=== PATIENT | female | born 1970 | race Caucasian/White ===

== ENCOUNTER 2022-04-18 09:38 | Inpatient (IN) | payer OTHER, SELFPAY ==
[2022-04-18] VITALS (13 sets, daily range): BP systolic 152–190; BP diastolic 79–105; PULSE 68–94; RESP 12–24; TEMP 36.3–36.4; O2SAT 98–100; BMI 27.6
--- NOTE | ~2022-04-18 | XR_ITS ---
EXAMINATION: XR chest 2V DATE: 04/18/2022 10:51 INDICATION: Shortness of breath and cough. TECHNIQUE: Frontal and lateral views of the chest were obtained. COMPARISON: None. FINDINGS: There are small pleural effusions. Kemar B-lines are noted, consistent mild pulmonary neot a. No pneumothorax. The heart size is normal. IMPRESSION: 1. Mild pulmonary edema. 2. Small pleural effusions. Reviewed, dictated and finalized at location A.
--- NOTE | ~2022-04-18 | CT_ITS ---
EXAMINATION: CTA chest PE protocol DATE: 04/18/2022 12:03 INDICATION: Shortness of breath and cough. TECHNIQUE: Computed tomography angiography (CTA) of the chest was performed with 100 mL Omnipaque-350 intravenous contrast timed to evaluate the pulmonary arteries. Coronal maximum intensity projection 3D-reconstructions were created by the technologist. Automated exposure control and iterative reconst ruction technique were employed. The dose-length product was 383.56 mGy-cm. COMPARISON: Chest 2 views 04/18/22 FINDINGS: The lungs demonstrate smooth septal thickening, consistent with mild pulmonary edema. There are airspace and groundglass opacities in left lower lobe. There is dependent atelectasis bilaterall y. There are small pleural effusions. The heart size is normal. No pericardial effusion. There is no pulmonary embolus. There is a 4.8 cm cyst in the liver. There is mild thoracic spondylosis. IMPRESSION: 1. No pulmonary embolus. 2. Mild pulmonary edema. 3. Airspace and groundglass opacities in left lower lobe, consistent with atelectasis versus pneumoni a. 4. Small pleural effusions. Reviewed, dictated and finalized at location A. IMPRESSION: 1. No pulmonary embolus. 2. Mild pulmonary edema. 3. Airspace and groundglass opacities in left lower lobe, consistent with atele ctasis versus pneumonia. 4. Small pleural effusions.
--- NOTE | ~2022-04-18 | XR_ITS ---
XR chest 2V DATE: 04/19/2022 08:41 INDICATION: Dyspnea. Pulmonary vascular congestion. TECHNIQUE: PA and lateral views COMPARISON: 04/2022 CTA chest 04/2022 PA and lateral chest FINDINGS: Normal heart size. Diminished pulmonary vascular and pulmonary interstitial prominence and diminished prominence of the minor fissure since 04/2022. Small bilateral pleural effusions. Minimal infiltrate and/or atelectasis in the lower lung zones, improved since . IMPRESSION: Improving congestive changes and infiltrates or atelectasis since 04/18/22 Reviewed, dictated and finalized at location A. IMPRESSION: Improving congestive changes and infiltrates or atelectasis since 06/18/21
--- NOTE | 2022-04-18 09:46 | ECG_ITS ---
Measurements Intervals [place] Rate: 84 P: 40 DE: 134 QRS: 21 QRSD: 84 T: 34 QT: 401 QTc: 476 Interpretive Statements SINUS RHYTHM NORMAL ECG NO PREVIOUS ECG AVAILABLE FOR COMPARISON Electronically Signed On 04-18-2022 10:18:31 CDT by Jordan Saab D.O.
[2022-04-18 10:30] LABS: Basophils Percent Auto 0.4 % (0.2-1.2); Eosinophils Absolute Auto 0.2 K/mm3 (0-0.3); Eosinophils Percent Auto 1.9 % (0-4.4); Hematocrit 33.1 % (37.0-47.0); Hemoglobin 9.7 g/dL (12.0-15.0); Immature Granulocyte Absolute 0.04 K/mm3 (0.00-0.031); Immature Granulocyte Percent A 0.5 % (0-0.5); Lymphocytes Absolute Auto 1.05 K/mm3 (0.9-3.2); Lymphocytes Percent Auto 13.5 % (18.3-44.2); Mean Corpuscular HGB Conc 29.3 g/dl (32-36); Mean Corpuscular Hemoglobin 26.3 pg (26-34); Mean Corpuscular Volume 89.7 fl (80-100); Mean Platelet Volume 8.8 fl (7.4-10.4); Monocytes Absolute Auto 0.5 K/mm3 (0.1-0.6); Monocytes Percent Auto 6.7 % (2.6-8.5); Platelet Count Result 189 k/mm3 (150-375); Red Blood Count 3.69 M/mm3 (4.2-5.4); Red Cell Distribution Width 14.6 % (11.5-14.5); White Blood Count 7.8 K/mm3 (4.5-10.0)
[2022-04-18] MEDS: ALBUTEROL SULFATE NEB 2.5 MG/3 ML INH INHALATION (10:35)
--- NOTE | 2022-04-18 10:43 | ED.GENADULT ---
HPI - General Adult General Chief complaint: Shortness of Breath/Dyspnea Stated complaint: SOB Time Seen by Provider: 04/18/22 10:16 History of Present Illness HPI narrative: Pt is a 51 y/o female, PMhx of HTN and tobacco dependency, presents to ED via EMS with C/O SOB for the past week, onset of symptoms Thursday with nasal congestion, one episode of vomiting and cough. Her cough is non productive and her nasal congestion has improved however, she has continued to feel as if she cannot take in a deep breath and she has felt achy with sore throat and sensation of posterior rhinorrhea. She does mention known close contacts to family members with similar symptoms. They were tested for flu and COV, all negative. She too, tested for COV on Thursday with a negative test. She has taken OTC DayQuil at home and has used an albuterol inhaler given to her by her brother without much relief. She also mentions running out of lisinopril/HCTZ one month ago after she changed insurances and is required to change PCPs. She has no hx of PE or DVT, denies CP, orthopnea, lower extremity edema, abdominal pain, NVDC, urinary symptoms or hematochezia/melena. No further modifying factors have been attempted [employer] Related Data Allergies Allergy/AdvReac Type Severity Reaction Status Date / Time No Known Allergies Allergy Verified 04/18/22 09:39 Review of Systems Review of Systems: refer to HPI Exam Const: General: healthy appearing, no acute distress and alert Other: pt does not appear unwell. She is conversant, without labored respirations, completing full sentences. HENMT: Head: normal to inspection Ears: external ears normal Face/Nose/Sinus: Normal external nose present and Normal nares present Mouth: Yes Normal oral and palatal mucosa present Throat: uvula midline Other: mild pharyngeal erythema noted, no exudate, no tonsil hypertrophy, uvula midline, no trismus Eyes: Conjunctivae: conjunctivae normal Neck: Neck: normal visual inspection, no lymphadenopathy and no meningeal signs Chest: Chest palpation & inspection: normal inspection of the chest Resp: Effort & Inspection: normal respiratory effort Cardio: Rate: regular rate Rhythm: regular rhythm GI: GI Palp: Yes Soft to palpation and Yes Tenderness to palpation present (GI) Back/Spine/Pelvis: Back: no CVA tenderness Skin: General skin exam: normal color Rashes: no rashes Wounds: no wounds Neuro: General: patient oriented x3, moves all extremities, no meningeal signs and no focal motor deficits Extrem: General: normal to inspection and no pedal edema Other: no calf TTP, no palpable cord Psych: Mental Status: mental status grossly normal Course Course Emergency Course: serum labs, COV, influenza, d dimer, neb treatment Vital Signs Vital signs: Vital Signs Temperature 36.4 C 04/18/22 09:40 Pulse Rate 94 04/18/22 09:40 Respiratory Rate 16 04/18/22 09:40 Blood Pressure 190/105 H 04/18/22 09:40 Pulse Oximetry 100 04/18/22 09:40 Oxygen Delivery Room Air 04/18/22 09:40 Temperature 36.4 C 04/18/22 09:40 Pulse Rate 82 04/18/22 11:49 Respiratory Rate 20 04/18/22 11:49 Blood Pressure 170/89 H 04/18/22 11:49 Pulse Oximetry 99 04/18/22 11:49 Oxygen Delivery Room Air 04/18/22 10:18 Medical Decision Making MDM Narrative Medical decision making narrative: Pt's work up is concerning for CHF, new onset as well as, pneumonia versus atelectasis. Given recent history of subjective fevers/chills and cough, will cover for CAP, with furosemide. Plan to admit for further diagnostic work up, including an echo and serial troponin's. Pt is endorsed to Lesa hospitalist MIGUELINA. She agrees to admit as observation. Differential Diagnosis Differential Diagnosis: PE, pneumonia, hypertensive urgency, COPD, COV, Influenza Vital Signs Vital Signs: Vital Signs Temperature 36.4 C 04/18/22 09:40 Pulse Rate 94 04/18/22 09:40 Respiratory Rate 16 1
[2022-04-18 11:03] LABS: Alanine Aminotransferase 18 U/L (6-35); Albumin Level 3.5 g/dL (3.5-5.1); Alkaline Phosphatase 70 U/L (38-126); Anion Gap 11 mmol/L (8-16); Aspartate Amino Transferase 28 U/L (14-36); Bilirubin,Total 0.3 mg/dL (0.2-1.3); Blood Urea Nitrogen 8 mg/dL (7-17); Calcium 8.2 mg/dL (8.4-10.2); Carbon Dioxide 22 mmol/L (22-30); Chloride 108 mmol/L (98-107); Estimated CRCL calculation 80 ml/min; Estimated Glomerular Filt Rate > 60; Glucose 91 mg/dL (65-110); Sodium 141 mmol/L (137-145)
[2022-04-18 11:06] LABS: D Dimer 1.74 ug/mL (<0.48)
[2022-04-18 11:15] LABS: Influenza A QL RT-PCR Negative (Negative); Influenza B QL RT-PCR Negative (Negative); SARS-CoV-2 RNA PCR Negative
[2022-04-18 12:02] LABS: NT Pro B Type Natriuretic Pept 1250 pg/mL (5-100); Troponin I < 0.012 ng/mL (0.000-0.034)
[2022-04-18] MEDS: ASPIRIN 325 MG TABLET PO (13:53)
[2022-04-18] MEDS: FUROSEMIDE INJ 40 MG/4 ML VIAL 20 MG IV PUSH (13:53)
[2022-04-18] MEDS: ALBUTEROL SULFATE NEB 2.5 MG/3 ML INH 5 MG INHALATION (15:02)
--- NOTE | 2022-04-18 17:10 | ADMGEN ---
This patient, Mi Guzman, was admitted to Medical Room 250-01. Patient/family oriented to hospital policies and general routines including ID bracelet, bed and alarms, visiting hours, pain management, procedures, bathroom and other care routines, personal items, smoking policy, room service/diet, and visiting hours. Information on how to activate the Rapid Response Team has been discussed. Patient/Family are encouraged to report perceived risks to care and to ask questions if they do not understand what they are told or what they should do.
[2022-04-18 20:50] LABS: Troponin I < 0.012 ng/mL (0.000-0.034)
[2022-04-18] MEDS: lisinopriL 20 MG TABLET PO (21:13)
[2022-04-18] MEDS: hydroCHLOROthiazide 25 MG TABLET PO (21:13)
[2022-04-18] MEDS: ACETAMINOPHEN 325 MG TABLET 650 MG PO (21:13)
[2022-04-19] VITALS (13 sets, daily range): BP systolic 139–144; BP diastolic 79–91; PULSE 63–100; RESP 16–20; TEMP 36.1–36.6; O2SAT 96–98
--- NOTE | 2022-04-19 | ECHO_ITS ---
Patient Info Name: Mi Guzman Age: 51 years : 1970 Gender: Female Ht: 67 in Wt: 176 lbs BSA: 1.96 m2 HR: 73 bpm BP: 140 / 91 mmHg Heart Rhythm: Sinus Rhythm Exam Date: 04/19/2022 11:32 AM Exam Location: [facility] Pulmonary Patient Status: Inpatient Admit Date: 04/19/2022 Staff Ordering Physician: Lesa Serrano NP Director Of Recruiting: Kinza Miguel RDCS Attending Provider: [place] MD Referring Physician: Zach DE DIOS; Exam Type: CA echo doppler color flow Study Info Indications - pulmonary edema Complete two-dimensional, color flow and Doppler transthoracic echocardiogram is performed. Summary 1. Complete two-dimensional, color flow and Doppler transthoracic echocardiogram is performed. 2. Left ventricular chamber dimension is normal. 3. Left ventricular systolic function is normal, estimated at 60-65%. 4. There is mildly increased left ventricular wall thickness. Sigmoid hypertrophy. 5. The left ventricular diastolic function is grade I diastolic dysfunction. 6. Left atrial chamber dimension is mildly enlarged. 7. There is no aortic valve stenosis. 8. There is mild mitral valve regurgitation. Left Ventricle Left ventricular chamber dimension is normal. Left ventricular systolic function is normal, estimated at 60-65%. There is mildly increased left ventricular wall thickness. Sigmoid hypertrophy. The left ventricular diastolic function is grade I diastolic dysfunction. Right Ventricle Right ventricular chamber dimension is normal. Right ventricular systolic function is normal. Left Atria Left atrial chamber dimension is mildly enlarged. Right Atria Right atrial chamber dimension is normal. Aortic Valve The aortic valve is not well visualized. There is no aortic valve stenosis. There is no aortic valve regurgitation. Pulmonic Valve The pulmonic valve is not well visualized. Mitral Valve The mitral valve has normal leaflets. There is mild mitral valve regurgitation. Tricuspid Valve The tricuspid valve leaflets are normal. There is trace tricuspid valve regurgitation. Unable to assess PA systolic pressure due to poor spectral resolution of tricuspid regurgitant jet velocity. Pericardium/Pleural The pericardium appears normal. There is trivial pericardial effusion. Inferior Vena Cava Normal inferior vena cava with <50% collapse upon inspiration consistent with elevated right atrial pressure, 10 mmHg. Aorta The aortic root size at the sinus of Valsalva is normal. Left Ventricular Outflow Tract Name Value Normal LVOT 2D LVOT Diameter 2.1 cm LVOT Doppler LVOT Peak Gradient 9 mmHg LVOT Mean Gradient 6 mmHg LVOT VTI 28 cm LVOT VTI/AV VTI Ratio 0.9 LVOT Stroke Volume 94 ml LVOT CO 7.5 l/min LVOT CI 3.8 l/min/m2 Mitral Valve Name
--- NOTE | 2022-04-19 01:29 | PM.IMHP ---
H&P: HPI History of Present Illness Date/Time: 04/18/22 2200 Chief Complaint: Shortness of breath and dyspnea. Narrative: this is a 51-year-old female patient who has a history of hypertension and tobacco dependency. The patient presented to the emergency room via EMS with complaints of shortness breath for the last week. The patient stated that her symptoms began in the mill night Thursday morning. She had nasal congestion and vomiting and a cough. The cough is nonproductive. However the patient feels like she cannot take a deep breath and she feels achy with a sore throat and cessation of posterior rhinorrhea. the patient did a COVID test on Thursday which was negative. She took [id number] DayQuil and used her albuterol inhaler without much relief. The patient also mentioned that she had lost her job in had a 90 day supply of her blood pressure medicine but ran out. Patient's blood pressure was initially 190/105 and is now down to 152/79. The patient was given albuterol, a azithromycin Rocephin, Lasix an aspirin in the emergency room. Chest x-ray was read as mild pulmonary edema. Small pleural effusions. Chest CTA was read as the following 1. No pulmonary embolus. 2. Mild pulmonary edema. 3. Airspace and groundglass opacities in left lower lobe, consistent with atelectasis versus pneumonia. 4. Small pleural effusions. her H&H is 9.7 and 33.1. D-dimer was noted to be 1.74. Troponins were negative. Patient's BNP was noted to be 1250. The patient was found to be negative for influenza A/B and COVID. The patient is being admitted to observation status on the date of service of 04/18/2022. Review of Systems Review of Systems: See HPI All systems reviewed & are unremarkable except as noted in HPI and below Constitutional: Constitutional: Reports as per HPI and Reports no additional constitutional complaints Eyes: Eyes: Reports as per HPI and Reports no additional eye complaints ENT: Reports system reviewed and no additional complaints, except as documented and Reports Normal hearing present Cardiovascular: Cardiovascular: Reports no additional cardiovascular complaints Respiratory: Respiratory: Reports no additional respiratory complaints and Reports no additional respiratory complaints Gastrointestinal: Gastrointestinal: Reports as per HPI and Reports no additional gastrointestinal complaints Musculoskeletal: Musculoskeletal: Reports no additional musculoskeletal complaints Integumentary/Breasts: Skin/Breast: Reports system reviewed and no additional complaints, except as docu and Reports as per HPI Neurologic: Reports system reviewed and no additional complaints, except as documented, Reports as per HPI and Reports Normal hearing present Psychiatric: Psychiatric: Reports no additional psychiatric complaints and Reports as per HPI Endocrine: Endocrine: Reports no additional endocrine complaints Hematologic/Lymphatic: Hematologic/Lymphatic: Reports no additional hematologic/lymphatic complaints Allergic/Immunologic: Allergic/Immunologic: Reports no additional allergic/immunologic complaints [facility] Past Medical History Medical History (Updated 04/19/22 @ 01:46 by Lesa Serrano NP) Hypertension, uncontrolled Tobacco abuse Surgical History Surgical History (Updated 04/19/22 @ 01:38 by Lesa Serrano NP) H/O tubal ligation S/P tonsillectomy and adenoidectomy Family History Family History Mother Hypertension Social History Social History (Updated 04/19/22 @ 01:40 by Lesa Serrano NP) Social History: the patient continues to smoke a pack a cigarettes every day although the last couple days she has cut back some. She lives with her significant other and has 3 children. The patient works for [employer]. She denies any marijuana and occasionally drinks alcohol. She does not have a durable power ac/dc rewinder for healthcare. Code sta
[2022-04-19 05:54] LABS: Basophils Percent Auto 0.6 % (0.2-1.2); Eosinophils Absolute Auto 0.2 K/mm3 (0-0.3); Eosinophils Percent Auto 3.4 % (0-4.4); Hematocrit 33.2 % (37.0-47.0); Hemoglobin 9.8 g/dL (12.0-15.0); Immature Granulocyte Absolute 0.01 K/mm3 (0.00-0.031); Immature Granulocyte Percent A 0.2 % (0-0.5); Lymphocytes Absolute Auto 1.02 K/mm3 (0.9-3.2); Lymphocytes Percent Auto 20.4 % (18.3-44.2); Mean Corpuscular HGB Conc 29.5 g/dl (32-36); Mean Corpuscular Hemoglobin 25.9 pg (26-34); Mean Corpuscular Volume 87.8 fl (80-100); Mean Platelet Volume 9.1 fl (7.4-10.4); Monocytes Absolute Auto 0.4 K/mm3 (0.1-0.6); Monocytes Percent Auto 8.6 % (2.6-8.5); Neutrophils Absolute Auto 3.3 K/mm3 (1.3-6.7); Neutrophils Percent Auto 66.8 % (45.5-73.1); Platelet Count Result 202 k/mm3 (150-375); Red Blood Count 3.78 M/mm3 (4.2-5.4); Red Cell Distribution Width 14.7 % (11.5-14.5)
[2022-04-19 06:04] LABS: Alanine Aminotransferase 20 U/L (6-35); Albumin Level 3.6 g/dL (3.5-5.1); Alkaline Phosphatase 87 U/L (38-126); Anion Gap 10 mmol/L (8-16); Aspartate Amino Transferase 29 U/L (14-36); Bilirubin,Total 0.5 mg/dL (0.2-1.3); Blood Urea Nitrogen 7 mg/dL (7-17); Calcium 8.6 mg/dL (8.4-10.2); Carbon Dioxide 23 mmol/L (22-30); Chloride 105 mmol/L (98-107); Estimated CRCL calculation 63 ml/min; Estimated Glomerular Filt Rate > 60; Glucose 92 mg/dL (65-110); Potassium 3.7 mmol/L (3.4-5.0); Sodium 138 mmol/L (137-145)
--- NOTE | 2022-04-19 08:27 | PM.IMPN ---
Progress Note: A&P Assessment and Plan (1) Community acquired pneumonia: Qualifiers: Laterality: left Lung location: lower lobe of lung Qualified Code(s): J18.9 - Pneumonia, unspecified organism Code(s): J18.9 - Pneumonia, unspecified organism Status: Acute Assessment and Plan: Patient presented with c/o dyspnea and cough. CTA chest with LLL opacities. COVID influenza a and B are negative. Continue IV azithromycin and Rocephin, started in ED 04/18/22 Continue duonebs Q6 hours scheduled. Sputum and blood cultures pending (2) Pulmonary vascular congestion: Code(s): R09.89 - Other specified symptoms and signs involving the circulatory and respiratory systems Status: Acute Assessment and Plan: Patient presented with c/o dyspnea, fatigue and cough. Chest x-ray and CTA chest with bilateral pleural effusions and pulmonary edema. BNP 1250 Patient given 20 mg IV Lasix in the emergency room. Transthoracic echocardiogram shows grade 1 diastolic dysfunction, normal LV systolic function EF 60%, mild LV wall thickness, and mild LAE. H2FPEF score 11.9% probability HFpEF Monitor strict I/O and daily weights. Continue MERRITT-I and HCTZ (3) Hypertension, uncontrolled: Code(s): I10 - Essential (primary) hypertension Status: Chronic Assessment and Plan: Chronic, stable. Continue hydrochlorothiazide and lisinopril (4) Tobacco abuse: Code(s): Z72.0 - Tobacco use Status: Chronic Assessment and Plan: Patient current, everyday smoker. She is thinking of quitting smoking at this time. Refused nicotine patch. We discussed smoking cessation tactics and counseled to quit more than 5 minutes. (5) Elevated d-dimer: Code(s): R79.89 - Other specified abnormal findings of blood chemistry Status: Acute Assessment and Plan: D-dimer 1.74. No prior history of VTE. CTA chest negative for PE. BLE without erythema, pain, or swelling. (6) Anemia: Qualifiers: Anemia type: iron deficiency Code(s): D64.9 - Anemia, unspecified Status: Chronic Assessment and Plan: Presumed chronic. H/H 9.8/33. Unknown baseline. MCV 87, MCH 25, MCHC 29.5. Denies melena, hematochezia or hematemesis. Serum iron 53, TIBC 431, Sat 12%, Ferritin 15.4, LDH 252, B12 812, Folate 7.7 Start iron supplement daily with vitamin C. Monitor for s/s acute bleeding. May be contributing to fatigue and dyspnea Plan CODE STATUS: FULL CODE Disposition: home when medically stable. Time Spent With Patient Time with patient: 15 - 25 minutes Subjective Date/time seen: 04/19/22 08:27 Her breathing is improving. She continued to have a nonproductive cough. No chest pain, palpitations or dizziness. Review of Systems Review of Systems: All systems reviewed & are unremarkable except as noted in HPI and below Exam Narrative: General: No acute distress.? Well-developed adult female sitting up in bed. No oxygen. Mental Status/Psych: Awake, alert and orientedx4 with clear speech. Neutral mood and affect. Pleasant and cooperative. Skin: Skin fair, warm, dry and intact without rashes or lesions. No open wounds. Good turgor.? HEENT: Normocephalic. Conjunctivae are clear. Sclera is non-icteric. EOM intact. PERRL. Grossly normal hearing. Oral mucosa pink and moist. Tongue midline. Oropharynx within normal limits. Neck: Supple. No JVD. Heart: S1 and S2 regular rate and rhythm. No murmurs, gallops, or rubs auscultated. Chest: Respirations even and unlabored. Lung sounds diminished with bibasilar crackles, no wheezes. Abdomen: Soft, round and non-tender to palpation.? Bowel sounds present in all 4 quadrants. Extremities:? Grossly normal ROM all extremities. Trace edema BLE, LLE>RLE. Radial and dorsalis pedis pulses +2 bilaterally. Neurological: No focal deficits. Cranial nerves 2-12 grossly intact.?No facial droop. Objective Data Vital Signs V
[2022-04-19] MEDS: IPRATROPIUM BR 0.02% INH SOLN 0.5 MG/2.5 ML VIAL INHALATION ×2 (08:42→21:33)
[2022-04-19] MEDS: ALBUTEROL SULFATE NEB 2.5 MG/3 ML INH 5 MG INHALATION ×2 (08:42→21:33)
[2022-04-19] MEDS: ASPIRIN 81 MG CHEWABLE TABLET PO (09:07)
[2022-04-19] MEDS: lisinopriL 20 MG TABLET PO (09:07)
[2022-04-19] MEDS: ENOXAPARIN 40 MG/0.4 ML SYRINGE SUB-Q (09:07)
[2022-04-19] MEDS: hydroCHLOROthiazide 25 MG TABLET PO (09:08)
[2022-04-19 09:31] LABS: Iron 53 ug/dL (37-170)
[2022-04-19 09:40] LABS: Percent Iron Saturation 12 % (20-50)
[2022-04-19 14:01] LABS: Lactate Dehydrogenase 252 U/L (120-246)
[2022-04-19 15:09] LABS: Folic Acid 7.7 ng/mL (2.76->20)
[2022-04-19 18:21] LABS: Anion Gap 13 mmol/L (8-16); Blood Urea Nitrogen 8 mg/dL (7-17); Calcium 8.9 mg/dL (8.4-10.2); Carbon Dioxide 22 mmol/L (22-30); Chloride 102 mmol/L (98-107); Estimated CRCL calculation 63 ml/min; Estimated Glomerular Filt Rate > 60; Glucose 165 mg/dL (65-110); Magnesium 1.7 mg/dL (1.6-2.3); Potassium 3.6 mmol/L (3.4-5.0); Sodium 137 mmol/L (137-145)
[2022-04-19] MEDS: CYCLOBENZAPRINE HCL 5 MG TABLET PO (20:04)
[2022-04-20] VITALS: PULSE 92
[2022-04-20] MEDS: ALBUTEROL SULFATE NEB 2.5 MG/3 ML INH 5 MG INHALATION (02:52)
[2022-04-20] MEDS: IPRATROPIUM BR 0.02% INH SOLN 0.5 MG/2.5 ML VIAL INHALATION (02:52)
[2022-04-20 04:00] VITALS: PULSE 83
[2022-04-20 06:34] LABS: Basophils Absolute Auto 0.1 K/mm3 (0.0-0.1); Basophils Percent Auto 0.7 % (0.2-1.2); Eosinophils Absolute Auto 0.2 K/mm3 (0-0.3); Eosinophils Percent Auto 2.2 % (0-4.4); Immature Granulocyte Absolute 0.02 K/mm3 (0.00-0.031); Immature Granulocyte Percent A 0.3 % (0-0.5); Lymphocytes Absolute Auto 1.29 K/mm3 (0.9-3.2); Lymphocytes Percent Auto 19.2 % (18.3-44.2); Mean Corpuscular HGB Conc 28.9 g/dl (32-36); Mean Corpuscular Volume 89.8 fl (80-100); Mean Platelet Volume 8.9 fl (7.4-10.4); Monocytes Absolute Auto 0.5 K/mm3 (0.1-0.6); Monocytes Percent Auto 7.1 % (2.6-8.5); Neutrophils Absolute Auto 4.7 K/mm3 (1.3-6.7); Neutrophils Percent Auto 70.5 % (45.5-73.1); Platelet Count Result 248 k/mm3 (150-375); Red Blood Count 4.23 M/mm3 (4.2-5.4); Red Cell Distribution Width 15.2 % (11.5-14.5); White Blood Count 6.7 K/mm3 (4.5-10.0)
[2022-04-20 08:00] VITALS: PULSE 78
[2022-04-20 08:11] VITALS: BP 133/72; PULSE 72; RESP 20; TEMP 36.1; O2SAT 99
[2022-04-20 08:21] VITALS: PULSE 79; RESP 18
[2022-04-20] MEDS: ASPIRIN 81 MG CHEWABLE TABLET PO (09:27)
[2022-04-20] MEDS: hydroCHLOROthiazide 25 MG TABLET PO (09:27)
[2022-04-20] MEDS: ENOXAPARIN 40 MG/0.4 ML SYRINGE SUB-Q (09:27)
[2022-04-20] MEDS: lisinopriL 20 MG TABLET PO (09:27)
--- NOTE | 2022-04-20 10:26 | PM.DS ---
DS: Admitting Diagnosis Discharge Date 04/20/22 1040 Admitting Diagnosis Community acquired pneumonia Pulmonary vascular congestion Hypertension, uncontrolled Tobacco abuse DS: Discharge Diagnosis Discharge Diagnosis (1) Community acquired pneumonia: Qualifiers: Laterality: left Lung location: lower lobe of lung Qualified Code(s): J18.9 - Pneumonia, unspecified organism Code(s): J18.9 - Pneumonia, unspecified organism Status: Acute (2) Acute decompensated heart failure: Code(s): I50.9 - Heart failure, unspecified Status: Acute (3) Hypertensive crisis: Code(s): I16.9 - Hypertensive crisis, unspecified Status: Acute (4) Tobacco abuse: Code(s): Z72.0 - Tobacco use Status: Chronic (5) Elevated d-dimer: Code(s): R79.89 - Other specified abnormal findings of blood chemistry Status: Acute (6) Anemia: Qualifiers: Anemia type: iron deficiency Iron deficiency anemia type: unspecified iron deficiency Qualified Code(s): D50.9 - Iron deficiency anemia, unspecified Code(s): D64.9 - Anemia, unspecified Status: Chronic Assessment and Plan: DS: Summary Hospital Course Reason for hospitalization: shortness of breath Hospital Course: Mi Guzman is a?51-year-old female with hypertension and tobacco dependency.? The patient presented to the emergency room via EMS with complaints of shortness breath for approximately 1 week prior to admission.? Her symptoms began in the middle of the night and early Thursday.? She reported nasal congestion, vomiting and a cough.? The cough is nonproductive.? However the patient feels like she cannot take a deep breath, has myalgias and a sore throat. ? She was negative for a home COVID test on Thursday.? She took cbar-ict-vzzprgn DayQuil and her albuterol inhaler without much relief. She reported losing her job and being without insurance; she has been out of her blood pressure medications for at least 2 weeks. In the ED, she was hypertensive 190/105, HR 92, T 36.4F, RR 16 and spO2 99% room air.?Lab work was significant for H&H is 9.7 and 33.1.? D-dimer was 1.74.? Troponins were negative. BNP was 1250.? She was negative for influenza A/B and COVID. Chest x-ray was concerning for pulmonary vascular congestion, small pleural effusions. CTA chest was negative for PE, but demonstrated mild pulmonary edema, bilateral small pleural effusions, and groundglass opacities to LLL. She was given albuterol neb, IV azithromycin and Rocephin, IV Lasix and full-dose aspirin in the emergency room.? She was admitted to the medical floor and monitored on telemetry for possible CHF exacerbation and community acquired pneumonia. Community acquired pneumonia: Patient presented with c/o dyspnea and cough. CTA chest demonstrated LLL opacities concerning for pneumonia. She was continued on IV azithromycin and Rocephin, which was started in ED 04/18/22. She was also treated with duonebs Q6 hours scheduled. Sputum culture was ordered, but could not be obtained. Blood cultures were negative x2. She was afebrile and without leukocytosis at discharge. She reported clinical improvement of symptoms at the time of discharge. She was discharged on Levaquin 750 mg PO Q24 hours x 5 days. She was counseled to quit smoking repeatedly during her hospitalization. We discussed new habit forming and nicotine replacement. She did not want nicotine replacement prescription at the time of discharge. She was also counseled on pneumococcal, influenza and COVID19 immunizations at discharge. Acute decompensated heart failure, diastolic, and hypertensive crisis Patient presented to the hospital with c/o dyspnea, fatigue and cough. Chest x-ray and CTA chest both [id number] bilateral small pleural effusions and pulmonary edema. Her BNP was elevated 1250. She was given 20 mg IV Lasix in the emergency room with improvement in symptoms. She had some BLE edema
== END 2022-04-20 11:00 | disposition home or self-care (01) | DRG 193 ==
LOC: ANHED 14:12 → ANH3MEDSUR 16:19 → ANH2MED 17:08
PROVIDERS: Emergency Medicine; Family Medicine; Admitting Provider Nurse Practitioner; Emergency Provider Nurse Practitioner Family; Visit Provider Nurse Practitioner Family
DX: J18.9 Pneumonia, unspecified organism (principal); I50.33 Acute on chronic diastolic (congestive) heart failure; I16.9 Hypertensive crisis, unspecified; I11.0 Hypertensive heart disease with heart failure; D50.9 Iron deficiency anemia, unspecified; F17.210 Nicotine dependence, cigarettes, uncomplicated; R79.89 Other specified abnormal findings of blood chemistry; Z20.822 Contact with and (suspected) exposure to COVID-19
CPT/HCPCS: 36415; 71046; 71275; 80048; 80053; 82607; 82728; 82746; 83540; 83550; 83615; 83735; 83880; 84484; 85025; 85380; 87040; 87636; 93005; 93306; 94640; 96365; 96367; 96372; 96375; 99285; A9270; G0378; J0456; J0696; J1650; J1940; Q9967

== ENCOUNTER 2022-05-16 09:25 | Outpatient (CLI) | payer OTHER, SELFPAY ==
[2022-05-16 10:03] LABS: Cholesterol 176 mg/dL (0-200); HDL Direct 68 mg/dL; Triglycerides 126 mg/dL (<150)
[2022-05-16 10:14] LABS: LDL Cholesterol Direct 72 mg/dL
[2022-05-16 10:36] LABS: Thyroid Stimulating Hormone Reflex 0.941 uIU/mL (0.465-4.68)
== END 2022-05-16 09:26 | disposition home or self-care (01) ==
LOC: ANHLAB 09:27
PROVIDERS: PCP Family Medicine; Visit Provider Family Medicine
DX: Z13.29 Encounter for screening for other suspected endocrine disorder (principal); Z13.220 Encounter for screening for lipoid disorders
CPT/HCPCS: 36415; 80061; 84443

== ENCOUNTER 2023-07-09 11:14 | Outpatient (CLI) | payer BC, SELFPAY ==
[2023-07-09 13:40] LABS: Basophils Absolute Auto 0.1 K/mm3 (0.0-0.1); Basophils Percent Auto 1.2 % (0.2-1.2); Eosinophils Absolute Auto 0.3 K/mm3 (0-0.3); Eosinophils Percent Auto 4.5 % (0-4.4); Hematocrit 40.1 % (37.0-47.0); Hemoglobin 12.6 g/dL (12.0-15.0); Immature Granulocyte Absolute 0.02 K/mm3 (0.00-0.031); Immature Granulocyte Percent A 0.3 % (0-0.5); Lymphocytes Percent Auto 23.3 % (18.3-44.2); Mean Corpuscular HGB Conc 31.4 g/dl (32-36); Mean Corpuscular Hemoglobin 31.8 pg (26-34); Mean Corpuscular Volume 101.3 fl (80-100); Mean Platelet Volume 9.1 fl (7.4-10.4); Monocytes Absolute Auto 0.6 K/mm3 (0.1-0.6); Monocytes Percent Auto 8.2 % (2.6-8.5); Neutrophils Absolute Auto 4.3 K/mm3 (1.3-6.7); Neutrophils Percent Auto 62.5 % (45.5-73.1); Platelet Count Result 296 k/mm3 (150-375); Red Blood Count 3.96 M/mm3 (4.2-5.4); Red Cell Distribution Width 12.7 % (11.5-14.5); White Blood Count 6.9 K/mm3 (4.5-10.0)
[2023-07-09 14:06] LABS: Alanine Aminotransferase 25 U/L (6-35); Albumin Level 4.1 g/dL (3.5-5.1); Alkaline Phosphatase 61 U/L (38-126); Anion Gap 6 mmol/L (8-16); Aspartate Amino Transferase 41 U/L (14-36); Bilirubin,Total 0.4 mg/dL (0.2-1.3); Blood Urea Nitrogen 20 mg/dL (7-17); Calcium 9.3 mg/dL (8.4-10.2); Carbon Dioxide 30 mmol/L (22-30); Chloride 104 mmol/L (98-107); Cholesterol 145 mg/dL (0-200); Estimated Glomerular Filt Rate 47; Glucose 104 mg/dL (65-110); HDL Direct 58 mg/dL; Potassium 3.8 mmol/L (3.4-5.0); Sodium 140 mmol/L (137-145); Triglycerides 106 mg/dL (<150)
[2023-07-09 14:17] LABS: LDL Cholesterol Direct 67 mg/dL
[2023-07-09 16:21] LABS: Iron 51 ug/dL (37-170)
[2023-07-09 16:31] LABS: Percent Iron Saturation 12 % (20-50)
[2023-07-09 16:53] LABS: Thyroid Stimulating Hormone Reflex 0.803 uIU/mL (0.465-4.68)
[2023-07-09 16:57] LABS: Ferritin 6.58 ng/mL (11.1-264)
== END 2023-07-09 11:15 | disposition home or self-care (01) ==
LOC: ANHGOSHLAB 11:15
PROVIDERS: PCP Family Medicine; Visit Provider Family Medicine
DX: Z13.220 Encounter for screening for lipoid disorders (principal); R53.83 Other fatigue; D50.9 Iron deficiency anemia, unspecified; Z13.29 Encounter for screening for other suspected endocrine disorder; Z13.228 Encounter for screening for other metabolic disorders
CPT/HCPCS: 36415; 80053; 80061; 82728; 83540; 83550; 84443; 85025

== ENCOUNTER 2023-08-07 12:59 | Emergency (ER) | payer BC, SELFPAY ==
[2023-08-07 13:03] VITALS: BP 127/71; PULSE 74; RESP 18; TEMP 36.5; O2SAT 100
--- NOTE | 2023-08-07 16:17 | PC.NURSE ---
pt declined to be seen due to I am hungry, I need to go eat. Pt ambulated out in NAD w/ steady gait.
== END 2023-08-07 17:41 | disposition left against medical advice (07) ==
LOC: ANHED 16:59
PROVIDERS: PCP Family Medicine
DX: R10.9 Unspecified abdominal pain (principal)
CPT/HCPCS: 99199

== ENCOUNTER 2023-12-18 10:09 | Outpatient (CLI) | payer BC, SELFPAY ==
--- NOTE | ~2023-12-18 | MM_ITS ---
EXAMINATION: MM screening trina BI w mookie HISTORY: Screening mammogram TECHNIQUE: Craniocaudal and mediolateral oblique 3-D tomosynthesis images were obtained and synthetic 2-D images were generated. CAD analysis was submitted and interpreted. COMPARISON: No prior mammogram is available for comparison at this institution. BREAST PARENCHYMAL COMPOSITION:Not Dense. There are scattered areas of fibroglandular density. FINDINGS: No suspicious mass, calcification, or architectural distortion are identified in either tina ast to suggest malignancy. There has been no suspicious interval change. IMPRESSION: No mammographic evidence of malignancy. Recommend routine screening mammography in one year. BI-RADS Category 1: Negative Reviewed, dictated and finalized at location .
== END 2023-12-18 10:10 | disposition home or self-care (01) ==
LOC: ANHIMG 10:11
PROVIDERS: PCP Family Medicine; Visit Provider Family Medicine
DX: Z12.31 Encounter for screening mammogram for malignant neoplasm of breast (principal)
CPT/HCPCS: 77063; 77067

== ENCOUNTER 2024-01-07 11:32 | Outpatient (CLI) | payer BC, SELFPAY ==
[2024-01-07 19:43] LABS: Anion Gap 9 mmol/L (4-12); Blood Urea Nitrogen 21 mg/dL (7-17); Calcium 9.3 mg/dL (8.4-10.2); Carbon Dioxide 25 mmol/L (22-30); Chloride 104 mmol/L (98-107); Estimated Glomerular Filt Rate > 60; Glucose 103 mg/dL (65-110); Sodium 138 mmol/L (137-145)
== END 2024-01-07 11:33 | disposition home or self-care (01) ==
LOC: ANHGOSHLAB 11:33
PROVIDERS: PCP Family Medicine; Visit Provider Family Medicine
DX: Z13.228 Encounter for screening for other metabolic disorders (principal)
CPT/HCPCS: 36415; 80048